=== PATIENT | female | born 1980 | race Caucasian/White ===

== ENCOUNTER 2016-10-22 16:54 | Emergency (ER) | payer MEDICAID ==
[~2016-10-22] VITALS: Ht 167.6 cm; Wt 93.2 kg
[2016-10-22 18:21] VITALS: BP 105/73
--- NOTE | 2016-10-22 18:27 | NUR ---
PT AMBULATED TO OVERFLOW CHAIR 1 WITH STEADY GAIT.
--- NOTE | 2016-10-22 18:30 | NUR ---
PATIENT PRESENTS TO ED WITH C/O LEFT GREAT TOE PAIN AND DRAINAGE . PT STATES SHE HAD A PEDICURE 09/19/16 WHICH RESULTED IN AN INGROWN TOENAIL, SHE F/U W/CRUDE OIL TREATER WHO REMOVED HER TOENAIL, BUT THE AFFECTED TOE HAS SINCE BECOME RED AND EDEMATOUS W/SEROUS DRAINAGE . DENIES N/V/D; SKIN IS PINK/WARM/DRY; AAOX4 WITH EVEN AND STEADY GAIT; LUNGS CLEAR BL; HR EVEN AND REGULAR; PT DENIES ANY FEVER, CP, SOB, OR COUGH AT THIS TIME; PATIENT STATES PAIN OF 8/10 AT THIS TIME; VSS; PATIENT POSITIONED IN OVERFLOW. ER MD MADE AWARE OF PT STATUS.
--- NOTE | 2016-10-22 18:45 | NUR ---
Patient discharged with v/s stable. Written and verbal after care instructions given and explained. Patient alert, oriented and verbalized understanding of instructions. Ambulatory with steady gait. All questions addressed prior to discharge. ID band removed. Patient advised to follow up with PMD. Rx of CEPHALEXIN 500MG QID X7 DAYS given. Patient educated on indication of medication including possible reaction and side effects. Opportunity to ask questions provided and answered.
[2016-10-22 18:46] VITALS: BP 105/73
== END 2016-10-22 18:45 | disposition home or self-care (01) ==
LOC: MED 16:54
DX: L03.032 Cellulitis of left toe (principal)
CPT/HCPCS: 99283